=== PATIENT | female | born 1990 | race Hispanic/Latino ===

== ENCOUNTER 2024-04-10 10:36 | Emergency (ER) | payer OTHER ==
[~2024-04-10] VITALS: Ht 165.1 cm; Wt 77.0 kg
[2024-04-10 10:47] VITALS: BP 137/80
[2024-04-10 11:00] VITALS: BP 126/81
[2024-04-10 11:11] VITALS: BP 126/81
[2024-04-10] MEDS ORDERED: ZOFRAN4 MG/TAB PO (11:15)
[2024-04-10] MEDS ORDERED: IPRATROPIUM BR0.03 % NAB (11:15)
== END 2024-04-10 11:32 | disposition home or self-care (01) | DRG 153 ==
LOC: ED 10:36
DX: J11.1 Influenza due to unidentified influenza virus with other respiratory manifestations (principal); Z20.822 Contact with and (suspected) exposure to COVID-19

== ENCOUNTER 2024-04-25 13:32 | Emergency (ER) | payer OTHER ==
[2024-04-25] VITALS (8 sets, daily range): BP systolic 94–119; BP diastolic 66–81
[~2024-04-25] VITALS: Ht 165.1 cm; Wt 77.0 kg
[~2024-04-25 13:32] MED LIST: IPRATROPIUM BR0.03 % NAB; ZOFRAN4 MG/TAB PO
[2024-04-25 14:01] LABS: BASO% 0.1 % (0-3); EOS% 0.9 % (0-8); HEMATOCRIT 37.9 % (37.0-47.0); HEMOGLOBIN 12.3 g/dl (12.0-16.0); IMMATURE GRANULOCYTES 0.1 % (0.0-5.0); LYMPH% 30.2 % (15-41); MEAN CELL VOLUME 85.9 fL CALC (80.0-100.0); MEAN CORPUSCULAR HGB 27.9 pG CALC (26.0-32.0); MEAN CORPUSCULAR HGB CONC 32.5 g/dL CAL (32.0-36.0); MONO% 6.4 % (2-13); NEUT# 6.38 thou/uL (2.00-7.15); NEUT% 62.3 % (42-76); RED BLOOD COUNT 4.41 mill/uL (4.20-5.60); RED CELL DISTRI WIDTH 13.2 % (11.5-15.5)
[2024-04-25 14:14] LABS: ALBUMIN 4.4 g/dL (3.2-5.0); ALKALINE PHOSPHATASE 72 u/l (38-126); ANION GAP 12 (6-22 (CALC)); BILIRUBIN, TOTAL 0.4 mg/dL (0.02-1.3); BUN 10 mg/dL (7-17); BUN/CREATININE RATIO 15 (12-20 (CALC)); CARBON DIOXIDE 24 mmol/l (22-30); CHLORIDE 108 mmol/l (95-108); CREATININE 0.7 mg/dL (0.5-1.0); ESTIMATED GFR 117 ML/MIN (>=90 (CALC)); SGOT/AST 27 u/l (14-36); SODIUM 140 mmol/l (137-146); TOTAL PROTEIN 7.8 g/dL (6.3-8.2)
[2024-04-25] MEDS ORDERED: SODIUM CHLORIDE 0.9% 1,000 ML IV ONE (15:40)
[2024-04-25 16:09] LABS: URINE BILIRUBIN - DIPSTICK Negative (NEGATIVE); URINE BLOOD DIPSTICK Negative (NEGATIVE); URINE GLUCOSE - DIPSTICK Negative (NEGATIVE); URINE KETONE Trace mg/dL (NEGATIVE); URINE LEUK ESTERASE Negative (NEGATIVE); URINE NITRITE - DIPSTICK Negative (Negative); URINE PH 5.5 (4.5-8.0); URINE PROTEIN - DIPSTICK Negative (NEG-TRACE); URINE SPECIFIC GRAVITY 1.025; URINE UROBILINOGEN - DIPSTICK 0.2 E.U./dL (0.2)
[2024-04-25 16:10] LABS: URINE COLOR Yellow
[2024-04-25] MEDS ORDERED: MECLIZINE HCL 25 MG/TAB PO ONE (16:50)
[2024-04-25] MEDS ORDERED: MECLIZINE 2525 MG PO (16:56)
== END 2024-04-25 17:13 | disposition home or self-care (01) ==
LOC: ED 13:32
PROVIDERS: Nurse Practitioner
DX: R42 Dizziness and giddiness (principal)